=== PATIENT | female | born 1950 | race Caucasian/White ===

== ENCOUNTER 2018-11-17 09:14 | Emergency (ER) | payer OTHER ==
[2018-11-17 09:29] VITALS: BP 127/91; PULSE 82; TEMP 97.4; BMI 21.1
[2018-11-17] MEDS ORDERED: ONDANSETRON 4 MG/2 ML VIAL IVPUSH ONE (10:08)
--- NOTE | 2018-11-17 10:11 | PDOC ---
History of Present Illness - General Chief Complaint: Diarrhea Stated Complaint: DIARRHEA Time Seen by Provider: 11/17/18 09:17 History Source: Patient (Patient walked in along with her with a history of loose bowel movements without vomiting after unknown food exposure, stated he ate all the time same food,) Exam Limitations: No Limitations - History of Present Illness Travel History: No Timing/Duration: reports: constant, getting worse Quality: reports: moderate Abdominal Pain Onset Location: denies: RUQ, LUQ, RLQ, LLQ, epigastric, periumbilical, suprapubic, generalized abdomen, flank, unknown, other Pain Radiation: reports: no radiation Activities at Onset: reports: no specific activity Aggravating Factors: improves with: None Alleviating Factors: improves with: None Past History - Travel Traveled outside of the country in the last 30 days: No Close contact w/someone who was outside of country & ill: No - Past Medical History Allergies/Adverse Reactions: Allergies Allergy/AdvReac Type Severity Reaction Status Date / Time aspirin AdvReac Intermediate GI BLEED Verified 11/17/18 09:15 codeine AdvReac Intermediate DIZZINESS Verified 11/17/18 09:15 ibuprofen AdvReac Intermediate GI BLEED Verified 11/17/18 09:15 Home Medications: Ambulatory Orders Alprazolam [Xanax] 1 mg PO DAILY 07/06/13 FENTANYL 100mcg PATCH [DURAGESIC 100mcg PATCH -] 50 mcg TD Q72H 07/06/13 Oxycodone HCl/Acetaminophen [Percocet 10-650 mg Tablet] 1 - 2 tab PO Q6H Bismuth Subsalicylate [Kaopectate] 262 mg PO QID #20 tablet 11/17/18 Lactobacillus Combo No.11 [Probiotic] 1 each PO DAILY 11/17/18 Sertraline HCl [Zoloft] 100 mg PO DAILY 11/17/18 Anemia: No Asthma: No Cancer: No Cardiac Disorders: No CVA: No COPD: No CHF: No Dementia: No Diabetes: No GI Disorders: Yes (GI BLEED AND COLONIC POLYPS) Disorders: Yes (INCONTINENCE) HTN: No Hypercholesterolemia: No Liver Disease: No Seizures: No Thyroid Disease: Yes (SURGERY 2006 HYPOTHYROIDISM) Other medical history: MS - Surgical History Abdominal Surgery: No Appendectomy: No Cardiac Surgery: No Cholecystectomy: No Lung Surgery: No Neurologic Surgery: No Orthopedic Surgery: No - Suicide/Smoking/Psychosocial Hx Smoking History: Never smoked Have you smoked in the past 12 months: No Number of Cigarettes Smoked Daily: 0 If you are a former smoker, when did you quit?: 2007 Information on smoking cessation initiated: No Hx Alcohol Use: No Drug/Substance Use Hx: No Substance Use Type: None Hx Substance Use Treatment: No Abd/GI Specific PMHX - Complaint Specific PMHX Colitis: Yes GERD: Yes Review of Systems - Review of Systems Able to Perform ROS?: Yes Is the patient limited Urdu proficient: Yes Constitutional: Yes: Symptoms Reported, Weakness HEENTM: No: Symptoms Reported, See HPI, Eye Pain, Blurred Vision, Tearing, Recent change in vision, Double Vision, Cataracts, Ear Pain, Ocular Prothesis, Ear Discharge, Nose Pain, Nose Congestion, Tinnitus, Nose Bleeding, Hearing Loss , Throat Pain, Throat Swelling, Mouth Pain, Dental Problems, Difficulty Swallowing, Mouth Swelling, Other Respiratory: No: Symptoms reported, See HPI, Cough, Orthopnea, Shortness of Breath, SOB with Exertion, SOB at Rest, Stridor, Wheezing, Productive cough, Hemoptysis, Other Cardiac (ROS): No: Symptoms Reported, See HPI, Chest Pain, Edema, Irregular Heart Rate, Lightheadedness, Palpitations, Syncope, Chest Tightness, Other ABD/GI: Yes: Symptoms Reported, See HPI, Diarrhea : No: Symptoms Reported, See HPI, Burning, Dysuria, Discharge, Frequency, Flank Pain, Hematuria, Incontinence, Pain, Urgency, Testicular Mass, Testicular Swelling, Lesions, Testicular Pain, Other Musculoskeletal: Yes: Muscle Weakness Integumentary: No: Symptoms Reported, See HPI, Bruising, Change in Color, Change in Hair/Nails, Dryness, Erythema, Flushing, Lesions, Lumps, Pallor, Pruritus, Rash, Sweating, Other Neurological: No: Symptoms reported, See HPI, Headache, Numbness, Paresthesia, Pre-Existing Deficit, Seizure, Tingling, Tremors, Weakness, Unsteady Gait, Ataxia, Dizziness, Other Psychiatric: No: Anxiety, Depression, Frequent Crying, Stressors, Sleep Pattern Change, Emotional Problems, Mood Swings, Change in Appetite, Other Endocrine: Yes: Intolerance to Cold Hematologic/Lymphatic: No: Symptoms Reported, See HPI, Anemia, Blood Clots, Easy Bleeding, Easy Bruising, Bleeding Diathesis, Lymph Node Abnormalities, Swollen Glands, Other *Physical Exam - Vital Signs Last Vital Signs Temp Pulse Resp BP Pulse Ox 97.4 F L 82 20 127/91 97 11/17/18 09:14 11/17/18 09:14 11/17/18 09:14 11/17/18 09:14 11/17/18 09:14 - Physical Exam General Appearance: Yes: Nourished, Appropriately Dressed, Moderate Distress, Thin HEENT: positive: FERNANDO, Normal ENT Inspection Neck: positive: Supple Respiratory/Chest: positive: Lungs Clear, Normal Breath Sounds Cardiovascular: positive: Regular Rate, S1, S2 Gastrointestinal/Abdominal: positive: Increased Bowel Sounds. negative: Rebound , Tenderness Musculoskeletal: positive: Normal Inspection Extremity: positive: Normal Capillary Refill, Coldness Integumentary: positive: Normal Color, Dry Neurologic: positive: Fully Oriented, Alert, Normal Mood/Affect (Slightly anxious) ED Treatment Course - LABORATORY CBC & Chemistry Diagram: 11/17/18 10:33 11/17/18 10:33 Progress Note - Progress Note Progress Note: Patient received 2 liters of iv fluids Observed every hour by the hour for 3 hours Improving progressively *DC/Admit/Observation/Transfer Diagnosis at time of Disposition: Gastroenteritis - Discharge Dispostion Disposition: HOME Condition at time of disposition: Improved Decision to Admit order: No - Prescriptions Prescriptions: Bismuth Subsalicylate [Kaopectate] 262 mg PO QID #20 tablet - Referrals Referrals: Daquan Acuña MD [Staff Physician] - - Patient Instructions Printed Discharge Instructions: DI for Viral Gastroenteritis -- Adult - Post Discharge Activity
[2018-11-17] MEDS ORDERED: SODIUM CHLORIDE 1,000 ML IV SCH (10:15)
[2018-11-17] MEDS ORDERED: ONDANSETRON 4 MG/2 ML VIAL ONE (10:28)
[2018-11-17 11:00] LABS: ALBUMIN 3.6 g/dl (3.4-5.0); ALK PHOS 60 U/L (45-117); ANION GAP 8 MMOL/L (8-16); BILIRUBIN,TOTAL 1.5 mg/dl (0.2-1); BLOOD UREA NITROGEN 9 mg/dl (7-18); CALCIUM 9.2 mg/dl (8.5-10); CHLORIDE 105 mmol/L (98-107); CO2 25 mmol/L (21-32); CREATININE 0.6 mg/dl (0.55-1.3); GLUCOSE,RANDOM 94 mg/dl (74-106); POTASSIUM 4.2 mmol/L (3.5-5.1); SGOT/AST 21 U/L (15-37); SGPT/ALT 9 U/L (13-61); SODIUM 138 mmol/L (136-145); TOT PROT 6.2 g/dl (6.4-8.2)
[2018-11-17 11:14] LABS: BASO % 0.7 % (0-2.0); EOS % 2.4 % (0-4.5); HEMOGLOBIN 13.3 GM/dl (10.7-15.3); LYMPH % 38.6 % (8-40); MCH 31.1 pg (25.7-33.7); MCHC 33.1 g/dl (32.0-36.0); MEAN CELL VOLUME 93.9 fl (80-96); MEAN PLT VOLUME 8.3 fl (7.5-11.1); NEUT % 47.3 % (42.8-82.8); PLATELET COUNT 239 K/MM3 (134-434); RBC 4.26 M/mm3 (3.60-5.2); RDW 12.4 % (11.6-15.6); WHITE BLOOD COUNT 6.6 K/mm3 (4.0-10.8)
== END 2018-11-17 13:29 | disposition home or self-care (01) ==
LOC: FER 09:14
PROC: 3E033GC Introduction of Other Therapeutic Substance into Peripheral Vein, Percutaneous Approach (ICD-10-PCS; principal; 2018-11-17)
PROC: 3E0337Z Introduction of Electrolytic and Water Balance Substance into Peripheral Vein, Percutaneous Approach (ICD-10-PCS; 2018-11-17)
DX: K52.9 Noninfective gastroenteritis and colitis, unspecified (principal)
CPT/HCPCS: 36415; 80053; 85025; 87045; 87046; 87205; 96361; 96374; 99282-25; J7030

== ENCOUNTER 2020-08-17 11:46 | Emergency (ER) | payer OTHER | END 2020-08-17 12:45 | disposition home or self-care (01) | LOC: JVIRT 11:46 | DX: R05 Cough (principal); Z20.828 Contact with and (suspected) exposure to other viral communicable diseases | CPT/HCPCS: C9803; G2012-GT; Q3014-GT; U0003 ==

== ENCOUNTER 2020-11-09 10:38 | Emergency (ER) | payer OTHER | END 2020-11-09 12:38 | disposition home or self-care (01) | LOC: JVIRT 10:38 | DX: Z11.52 Encounter for screening for COVID-19 (principal) | CPT/HCPCS: C9803; G2251-GT; Q3014-GT; U0003 ==